=== PATIENT | male | born 1955 | race Caucasian/White ===

== ENCOUNTER 2016-09-15 13:50 | Observation (INO) | payer BC ==
--- NOTE | ~2016-09-15 | HP ---
History And Physical [place] [id number] [facility] [place] [address] NAME: RAYMOND WYNN : 57 STATUS : ADM Gloria PAT#: [id number] AGE: 60 ADM/REG DATE : 09/15/16 MR#: [id number] REPORT SERV DATE: 09/16/16 DICTATED BY: JOSE ALBERTO DAVILA DATE: 09/16/16 REPORT STATUS : Draft TRANSCRIBED BY: IQRA DATE: 09/16/16 DATE OF ADMISSION: 09/15/2016 CABIN EQUIPMENT SUPERVISOR: Armani Caldwell M.D. HEALTH ADMINISTRATION TEACHER: Kaushal Blair M.D. CHIEF COMPLAINT: Chest pain and right shoulder pain similar to previous cardiac event. HISTORY OF PRESENT ILLNESS: A very pleasant 60-year-old white gentleman with known history of CAD status post seven stents to unknown vessels prior to CABG x4 in 2009 in [place]. The patient states that on 09/14/2016, he did not feel well all day. On 09/15/2016 in the morning, he awoke with left-sided chest pain described as a heaviness, his heart was racing. At some point EMS was called, and his documented blood pressure reportedly was 190/90. He reports associated shortness of breath. Denies nausea, diaphoresis, dizziness, or belching. At its most intense, the chest pain was rated an 8/10. At the time of the interview in the CPOU, he rates it a 2/10. It lasted several hours in duration. It was relieved with full dose aspirin and nitroglycerin spray x3 per EMS. The patient denies any change in his activity level. No exertional component described. The patient denies any argument, confrontational event, or stressful event that may have precipitated this. The patient denies any personal history of OK, DVT, PE, or stroke. The patient recently was treated for sinusitis two weeks ago, and instructed to get Mucinex which he never began. Denies palpitations, no syncopal episodes. Consumes two cups of coffee per day. Denies PND or orthopnea. PAST MEDICAL HISTORY: 1. CAD. a. Status post seven stents to unknown vessels. b. CABG x4 in 2009 in [place]. 2. HIV positivity with undetectable viral load. 3. Hypertension. 4. Dyslipidemia. 5. Denies diabetes. 6. CKD 3, followed by Dr. Blair every three months. 7. Prostate cancer, stage IV. Followed by Dr. Garcia. 8. Positive family history for early CAD. 9. Ongoing tobacco abuse. 10.GERD. PAST SURGICAL HISTORY: 1. CABG x4 in 2009. 2. Lymph nodes removed from neck and groin. 3. Appendectomy. 4. Hernia repair. History And Physical [address] [address] NAME: RAYMOND WYNN : 57 STATUS : ADM Gloria PAT#: [id number] AGE: 60 ADM/REG DATE : 09/15/16 MR#: [id number] REPORT SERV DATE: 09/16/16 DICTATED BY: JOSE ALBERTO DAVILA DATE: 09/16/16 REPORT STATUS : Draft TRANSCRIBED BY: IQRA DATE: 09/16/16 SOCIAL HISTORY: He is single. Does not have any children. 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 Does not have a structured exercise routine, but is active. Smokes half a pack per day for twenty plus years. Social drinks socially. Denies illicits. FAMILY HISTORY: Mother and father of cancer. Brother at 56 reportedly of a sudden cardiac . REVIEW OF SYSTEMS: A 14-point review of systems was performed, significant for HPI. No other contributory diagnoses identified. ALLERGIES: PERFLUTREN (FROM [employer]), RASH AND ITCHING. HOME MEDICATIONS: Norvasc 2.5 mg nightly, aspirin 325 daily, Lipitor 10 mg daily, carvedilol 6.25 mg twice daily, vitamin D3 2000 units daily, Plavix 75 mg daily, Welchol 625 daily, Pristiq 100 mg nightly, folic acid 1 mg nightly, ibuprofen p.r.n., lisinopril 5 mg nightly, Protonix 40 mg twice daily, Isentress 400 mg twice daily, Norvir 100 mg nightly, sodium bicarb with meals, Prezista 1 tablet nightly, and vitamin B 100 mg daily. PHYSICAL EXAMINATION: BLOOD PRESSURE: Bilateral blood pressures on arrival, right 152/90, left 148/86, this morning 153/88. PULSE: 88, RESPIRATORY RATE: 20, TEMPERATURE: 98.7, O2 saturation 97% on room air. HEIGHT: 5 feet 8 inches. WEIGHT: 171 pounds, BMI of 26. GENERAL: Cooperative, in no apparent distress. HEENT: Pupils 2 mm, sclera nonicteric. Nares patent. Moist mucous membranes. No xanthelasma. NECK: Trachea midline, no thyromegaly. No JVD. No bruits. LYMPH: No cervical lymphadenopathy. No supraclavicular lymphadenopathy. RESPIRATORY: Unlabored respirations. Breath sounds clear bilaterally to posterior auscultation. No wheezes or rhonchi. CARDIOVASCULAR: Regular rate. No murmur, rub or gallop appreciated. EXTREMITIES: Without edema. Pulses 2+ bilaterally. ABDOMEN: Soft, nontender, nondistended, normal bowel sounds auscultated throughout. No organomegaly. SKIN: Warm, dry extremities. No pallor, or cyanosis. PSYCHIATRIC: Appropriate affect. Alert, oriented x3. LABORATORY DATA: Troponin less than 0.02 twice. Potassium 3.7, BUN 20, creatinine 1.73 (baseline 1.4 to 2.0), glucose 88, and magnesium 1.9. Lipase 386. WBC 7.4, hemoglobin 12.4, hematocrit 36.1, and platelet count 238,000. EKG; sinus rhythm with PAC. Echo, 02/2015: EF of 45% to 50%. Mild basal inferior HK. Mild diastolic dysfunction. Holter 05/2016: 85 to 159 beats per minute. Average 106 beats per minute. Seven PVCs. CTA of the abdomen and pelvis; no bowel obstruction or bowel wall inflammation. Tiny nonobstructing bilateral lower pole kidney stones. Mild fatty infiltration of the liver. History And Physical [address] [address] NAME: RAYMOND WYNN : 57 STATUS : ADM Gloria PAT#: [id number] AGE: 60 ADM/REG DATE : 09/15/16 MR#: [id number] REPORT SERV DATE: 09/16/16 DICTATED BY: JOSE ALBERTO DAVILA DATE: 09/16/16 REPORT STATUS : Draft TRANSCRIBED BY: MODL DATE: 09/16/16 No mass lesion, adenopathy, or acute inflammatory process within the abdomen or pelvis. ASSESSMENT AND PLAN: 1. Substernal chest pain. The patient has been observed in the CPOU overnight to rule out myocardial infarction with serial enzymes and serial EKGs, and held n.p.o. for MPI today. The patient will be discharged home if low risk, no ischemia. If anything suggestive of ischemia, Cardiology referral will be initiated, otherwise the patient will be asked to follow up with Dr. Naseem Tyson and Dr. Caldwell as appropriate. 2. Coronary artery disease. Continue home medications. 3. Hypertension. Monitor blood pressure. Continue home medications. 4. Dyslipidemia. Continue statin. 5. Ongoing tobacco abuse. Counseled regarding cessation for cardiovascular health and well being. 6. Chronic kidney disease, 3. Creatinine 1.73 today. Historic baseline 1.40 to 2.00, followed by Dr. Blair every three months. 7. Low-grade temp of 99.3 on admission, now 98.7, reports recent sinusitis, afebrile at present. 8. Stage IV prostate cancer per report. The patient reports he initially was not going to undergo any treatment for the prostate cancer, and has had difficulty getting certain studies approved to his insurance carrier. The patient is to follow up with Dr. Garcia for further evaluation and treatment as he now wishes to move forward with treating that recent diagnosis. 9. No nitroglycerin available. We will provide script at discharge education and for storage and use provided at bedside. LUCIANO/IQRA MOISE Gomez, INSERT OPERATOR- / [id number] CC: MOISE Gomez, INSERT OPERATOR-BC Naseem Tyson M.D. Armani Caldwell M.D.
[~2016-09-15 13:50] MED LIST: ACET500CAP PO; ASABAYER PO; COREG12 PO; COREG6 PO; CRESTOR10 PO; FOLIC PO; IMOD PO; ISENTRESS400 MG PO; NORVIR100 PO; PLAVIX PO; PREZISTA400 MG PO; PRISTIQ100 MG PO; PROTONIX PO; SODBICAR10 PO; VITAMIN B-1 100MG PO; VITAMIN D31000 UNIT PO; WELCHOL 625 MG625 MG PO
[2016-09-15 14:32] LABS: BASOPHILS 0.4 %; BASOPHILS ABSOLUTE 0.03 10/3/uL (0.0-0.16); EOSINOPHILS 2.2 %; EOSINOPHILS ABSOLUTE 0.16 10/3/uL (0.0-0.53); HEMATOCRIT 36.1 % (40.0-51.0); HEMOGLOBIN 12.4 g/dL (13.6-17.8); IMMATURE GRANULOCYTES 0.3 %; IMMATURE GRANULOCYTES ABSOLUTE 0.02 10/3/uL (0.0-0.11); LYMPHOCYTES 25.3 %; LYMPHOCYTES ABSOLUTE 1.87 10/3/uL (0.67-4.30); MEAN CORPUS HGB CONC 34.3 g/dL (32.0-36.0); MEAN CORPUSCULAR HEMOGLOB 33.4 pg (26.0-34.0); MEAN PLATELET VOLUME 8.8 fL (9.2-13.0); MONOCYTES 8.9 %; MONOCYTES ABSOLUTE 0.66 10/3/uL (0.21-1.20); NEUTROPHILS 62.9 %; NEUTROPHILS ABSOLUTE 4.66 10/3/uL (2.02-8.40); RED CELL COUNT 3.71 10/6/uL (4.7-6.1)
[2016-09-15 14:33] LABS: ER CBC TAT 0 Hrs 05 Mins; MANUAL DIFF NO %; MEAN CORPUSCULAR VOLUME 97.3 fL (80-100); PLATELET COUNT 238 10/3/uL (150-400); WHITE BLOOD CELLS 7.4 10/3/uL (4.5-10.5)
[2016-09-15 14:41] LABS: PARTIAL THROMBO TIME 24.2 SEC (22.5-37.2); PROTIME (NOT ORD) 12.6 SEC (12.0-14.5)
[2016-09-15 14:52] LABS: ALBUMIN 3.7 G/DL (3.5-5.0); ALKALINE PHOSPHATASE 69 U/L (45-117); BUN (BLOOD UREA NITROGEN) 21 MG/DL (6-23); CALCIUM, SERUM 9.2 MG/DL (8.5-10.4); CHEST PAIN PROFILE TAT 0 Hrs 24 Mins; CHLORIDE, SERUM 107 MMOL/L (96-112); CO2 (CARBON DIOXIDE) 24 MMOL/L (24-34); CREATININE 1.77 MG/DL (0.70-1.30); DIRECT BILIRUBIN < 0.1 MG/DL (0.0-0.4); GFR AFRICAN AMERICAN 48 ML/MIN (>=60); GFR NON AFRICAN AMERICAN 41 ML/MIN (>=60); GLUCOSE, SERUM 95 MG/DL (60-99); INDIRECT BILIRUBIN(NOT ORDER) 0.2 MG/DL (0.1-0.9); POTASSIUM, SERUM 3.9 MMOL/L (3.5-5.3); SGOT(AST) 23 U/L (5-40); SGPT(ALT) 17 U/L (5-65); SODIUM, SERUM 139 MMOL/L (135-148); TOTAL BILIRUBIN 0.3 MG/DL (0-1.2); TOTAL PROTEIN 7.2 G/DL (6.0-8.5); TROPONIN I <0.02 NG/ML (<0.05)
[2016-09-15] MEDS ORDERED: VITAMIN D31000 UNIT PO (18:09)
[2016-09-15] MEDS ORDERED: ASA5GR PO (18:09)
[2016-09-15] MEDS ORDERED: COREG6 PO (18:09)
[2016-09-15] MEDS ORDERED: WELCHOL 625 MG625 MG PO (18:10)
[2016-09-15] MEDS ORDERED: PLAVIX PO (18:10)
[2016-09-15] MEDS ORDERED: PREZISTA800 MG PO (18:11)
[2016-09-15] MEDS ORDERED: FOLIC PO (18:12)
[2016-09-15] MEDS ORDERED: PRISTIQ100 MG PO (18:12)
[2016-09-15] MEDS ORDERED: NORV25 PO (18:13)
[2016-09-15] MEDS ORDERED: PRIN5 PO (18:13)
[2016-09-15] MEDS ORDERED: NORVIR100 PO (18:14)
[2016-09-15] MEDS ORDERED: LIPITOR10 PO (18:14)
[2016-09-15] MEDS ORDERED: ISENTRESS400 MG PO (18:14)
[2016-09-15] MEDS ORDERED: VITAMIN B-1 PO (18:15)
[2016-09-15] MEDS ORDERED: SODBICAR10 PO (18:15)
[2016-09-15] MEDS ORDERED: ADVIL PO (18:16)
[2016-09-15] MEDS ORDERED: PROTONIX PO (18:17)
[2016-09-16 04:17] LABS: BUN (BLOOD UREA NITROGEN) 20 MG/DL (6-23); CALCIUM, SERUM 9.2 MG/DL (8.5-10.4); CHLORIDE, SERUM 104 MMOL/L (96-112); CO2 (CARBON DIOXIDE) 28 MMOL/L (24-34); CREATININE 1.73 MG/DL (0.70-1.30); GFR AFRICAN AMERICAN 49 ML/MIN (>=60); GFR NON AFRICAN AMERICAN 42 ML/MIN (>=60); GLUCOSE, SERUM 88 MG/DL (60-99); POTASSIUM, SERUM 3.7 MMOL/L (3.5-5.3); SODIUM, SERUM 139 MMOL/L (135-148)
[2016-09-16] MEDS ORDERED: NTG150 SL (13:37)
== END 2016-09-16 13:47 | disposition home or self-care (01) ==
LOC: ER 13:50 → CDU1 19:18 → CDU2 19:58
PROVIDERS: Clinical Nurse Specialist; Nurse Practitioner
DX: R07.2 Precordial pain (principal); I25.10 Atherosclerotic heart disease of native coronary artery without angina pectoris; E78.5 Hyperlipidemia, unspecified; N18.3 Chronic kidney disease, stage 3 (moderate); I12.9 Hypertensive chronic kidney disease with stage 1 through stage 4 chronic kidney disease, or unspecified chronic kidney disease; F17.210 Nicotine dependence, cigarettes, uncomplicated; E78.00 Pure hypercholesterolemia, unspecified; K21.9 Gastro-esophageal reflux disease without esophagitis; F32.9 Major depressive disorder, single episode, unspecified; Z90.49 Acquired absence of other specified parts of digestive tract; Z21 Asymptomatic human immunodeficiency virus [HIV] infection status; Z95.1 Presence of aortocoronary bypass graft; Z98.890 Other specified postprocedural states; Z88.8 Allergy status to other drugs, medicaments and biological substances; Z79.02 Long term (current) use of antithrombotics/antiplatelets; Z79.899 Other long term (current) drug therapy; Z79.82 Long term (current) use of aspirin; Z87.442 Personal history of urinary calculi
CPT/HCPCS: 71010; 74176; 78452; 80048; 80076; 83690; 83735; 84484; 85025; 85610; 85730; 93005; 93017; 96374; 96375; 99285; A9270-GY; A9502; G0378; J2405